=== PATIENT | female | born 1965 | race Two or more races ===

== ENCOUNTER 2022-04-14 17:29 | Emergency (ER) | payer OTHER ==
[~2022-04-14] VITALS: Ht 165.1 cm; Wt 56.8 kg
[2022-04-14] MEDS ORDERED: LUMA42CA PO ×2 (17:46→20:28)
[2022-04-14] MEDS ORDERED: LITH450CRT PO ×2 (17:46→20:28)
[2022-04-14] MEDS ORDERED: DOCU-350 PO (17:46)
[2022-04-14] MEDS ORDERED: HYDR-4808 PO (17:46)
[2022-04-14 17:51] VITALS: BP 104/68
[2022-04-14] MEDS ORDERED: APIX5TAB PO (17:54)
[2022-04-14 18:11] LABS: BASOPHILS % (AUTO) 0.4 % (0.0-2.0); EOSINOPHILS % (AUTO) 4.3 % (1.0-6.0); HEMATOCRIT 40.4 % (36-46); HEMOGLOBIN 13.7 g/dL (12.0-16.0); LYMPHOCYTES # (AUTO) 2.2 K/uL (1.0-4.8); LYMPHOCYTES % (AUTO) 27.6 % (22.0-44.0); MEAN CORPUSCULAR HEMOGLOBIN 30.3 pg (26.0-34.0); MEAN CORPUSCULAR VOLUME 89 fL (80-100); MONOCYTES # (AUTO) 0.3 K/uL (0.1-1.0); MONOCYTES % (AUTO) 3.7 % (2.0-9.0); NEUTROPHILS # (AUTO) 5.1 K/uL (1.8-7.7); PLATELET COUNT (AUTO) 251 K/uL (150-450); RED BLOOD CELL COUNT(AUTO) 4.53 MIL/uL (4.00-5.20); RED CELL DISTRIBUTION WIDTH 13.2 % (11.5-14.5)
[2022-04-14 18:19] LABS: ANION GAP 10 mmol/L (8-16); CALCIUM, TOTAL 8.5 mg/dL (8.8-10.5); CARBON DIOXIDE 26 mmol/L (22-29); CHLORIDE 109 mmol/L (98-107); CREATININE 0.58 mg/dL (0.60-1.30); GLUCOSE,RANDOM 103 mg/dL (70-110); POTASSIUM 3.5 mmol/L (3.5-5.1); SODIUM SERUM 145 mmol/L (136-145); UREA NITROGEN, BLOOD 11 mg/dL (7-18)
[2022-04-14 18:24] LABS: GLOMERULAR FILTR. RATE CALC > 60 mL/min (>60)
[2022-04-14 18:25] LABS: ALANINE AMINOTRANSFERASE 19 U/L (12-78); ALBUMIN 3.3 g/dL (3.4-5.0); ALKALINE PHOSPHATASE 131 U/L (46-116); ASPARTATE AMINOTRANSFERASE 11 U/L (15-37); BILIRUBIN,TOTAL 0.3 mg/dL (0.1-1.0); TOTAL PROTEIN, SERUM 6.6 g/dL (6.4-8.2)
[2022-04-14 18:27] LABS: INR 0.9 (0.9-1.1)
[2022-04-14 18:36] LABS: AMPHET/METH SCREEN,URINE POSITIVE (NEGATIVE); BARBITURATE SCREEN, URINE NEGATIVE (NEGATIVE); BENZODIAZEPINES SCREEN,URINE NEGATIVE (NEGATIVE); CANNABINOID SCREEN,URINE NEGATIVE (NEGATIVE); COCAINE SCREEN,URINE NEGATIVE (NEGATIVE); METHADONE SCREEN, URINE NEGATIVE (NEGATIVE); OPIATE SCREEN,URINE NEGATIVE (NEGATIVE)
[2022-04-14 18:37] LABS: PHENCYCLIDINE SCREEN,URINE POSITIVE (NEGATIVE)
[2022-04-14 19:10] LABS: LITHIUM < 0.20 mmol/L (0.60-1.20)
[2022-04-14 19:30] LABS: COVID AG,FIA SOURCE NASAL SWAB
[2022-04-14] MEDS ORDERED: LORazepam 1 MG TABLET PO ONE (20:00)
[2022-04-14] MEDS ORDERED: HydrOXYzine PAMOATE 50 MG CAPSULE PO ONE (20:00)
[2022-04-14] MEDS ORDERED: HYDR50CA7 PO (20:28)
[2022-04-14] MEDS ORDERED: DOCU-385 PO (20:28)
== END 2022-04-15 00:54 | disposition home or self-care (01) ==
LOC: EMS 17:29
DX: F31.9 Bipolar disorder, unspecified (principal); R45.851 Suicidal ideations; F16.10 Hallucinogen abuse, uncomplicated; F15.10 Other stimulant abuse, uncomplicated; F41.9 Anxiety disorder, unspecified; F17.210 Nicotine dependence, cigarettes, uncomplicated; Z86.718 Personal history of other venous thrombosis and embolism; Z88.0 Allergy status to penicillin; Z20.822 Contact with and (suspected) exposure to COVID-19
CPT/HCPCS: 99285; 87426; 80053; 80178; 85025; 85610; 36415; 80307; G0480

== ENCOUNTER 2023-03-22 19:08 | Emergency (ER) | payer OTHER ==
[~2023-03-22] VITALS: Ht 170.2 cm; Wt 63.6 kg
[~2023-03-22 19:08] MED LIST: APIX5TAB PO; DOCU-350 PO; DOCU-385 PO; HYDR-4808 PO; HYDR50CA7 PO; LITH450CRT PO; LUMA42CA PO
[2023-03-22 20:12] VITALS: BP 113/72; PULSE 70; RESP 16; TEMP 98
[2023-03-22] MEDS ORDERED: KETOROLAC TROMETHAMINE 30 MG/ML VIAL IM ONE (21:30)
[2023-03-22] MEDS ORDERED: KETOROLAC TROMETHAMINE 15 MG/ML VIAL IM ONE (21:45)
[2023-03-22] MEDS ORDERED: IBUP-1506 PO (22:52)
[2023-03-22] MEDS ORDERED: LIDO700A15 TP (22:54)
[2023-03-22] MEDS ORDERED: LIDOCAINE 5% TRANSDERMAL PATCH TD ONE (23:00)
== END 2023-03-22 23:09 | disposition home or self-care (01) ==
LOC: EMS 19:09
DX: R07.81 Pleurodynia (principal); F41.9 Anxiety disorder, unspecified; F31.9 Bipolar disorder, unspecified; F17.210 Nicotine dependence, cigarettes, uncomplicated
CPT/HCPCS: 99283; 71111; 96372; J1885